=== PATIENT | male | born 1965 | race Caucasian/White ===

== ENCOUNTER 2023-05-26 11:37 | Emergency (ER) | payer OTHER ==
[~2023-05-26] VITALS: Ht 172.7 cm; Wt 102.4 kg
[2023-05-26 11:39] VITALS: TEMP 97.6
[2023-05-26] MEDS ORDERED: NOXI1TAB PO (11:54)
[2023-05-26] MEDS ORDERED: JARD1TAB3 PO (12:00)
[2023-05-26] MEDS ORDERED: OMEP40CA4 PO (12:00)
[2023-05-26] MEDS ORDERED: SERT-141 PO (12:00)
[2023-05-26] MEDS ORDERED: FAMO40TA3 PO (12:00)
[2023-05-26] MEDS ORDERED: NAPR220C23 PO (12:00)
[2023-05-26] MEDS ORDERED: ATOR80TA59 PO (12:00)
[2023-05-26] MEDS ORDERED: LANTINJ4 SC (12:00)
[2023-05-26] MEDS ORDERED: AMLO1TAB25 PO (12:00)
[2023-05-26] MEDS ORDERED: B12-1CHW PO (12:00)
[2023-05-26] MEDS ORDERED: BUPR-70 PO (12:00)
[2023-05-26] MEDS ORDERED: CETI5SOL3 PO (12:00)
[2023-05-26] MEDS ORDERED: LOSA100T46 PO (12:00)
[2023-05-26] MEDS ORDERED: HYDR12.55 PO (12:00)
[2023-05-26] MEDS ORDERED: SPIR-10 PO (12:00)
[2023-05-26] MEDS ORDERED: LIDOCAINE 5% (LIDODERM) PATCH TD ONE (13:20)
[2023-05-26] MEDS ORDERED: KETOROLAC 30 MG/ML 1ML VIAL IM ONE (13:20)
[2023-05-26] MEDS ORDERED: ACETAMINOPHEN TAB 650MG DOSE (2X325MG) PO ONE (13:20)
[2023-05-26 14:22] VITALS: BP 176/90; O2SAT 96
[2023-05-26] MEDS ORDERED: ASPE4PAD TOP (14:28)
[2023-05-26] MEDS ORDERED: METH-1165 PO (14:28)
== END 2023-05-26 14:34 | disposition home or self-care (01) ==
LOC: M ED 11:37
DX: M54.32 Sciatica, left side (principal); R60.9 Edema, unspecified; I10 Essential (primary) hypertension; K21.9 Gastro-esophageal reflux disease without esophagitis; G47.33 Obstructive sleep apnea (adult) (pediatric); F41.9 Anxiety disorder, unspecified; Z88.8 Allergy status to other drugs, medicaments and biological substances; Z79.02 Long term (current) use of antithrombotics/antiplatelets; Z79.811 Long term (current) use of aromatase inhibitors; Z79.83 Long term (current) use of bisphosphonates; Z79.899 Other long term (current) drug therapy
CPT/HCPCS: 93971; 96372; 99283; J1885

== ENCOUNTER 2023-06-04 10:01 | Emergency (ER) | payer OTHER ==
[~2023-06-04] VITALS: Ht 172.7 cm; Wt 100.8 kg
[~2023-06-04 10:01] MED LIST: AMLO1TAB25 PO; ASPE4PAD TOP; ATOR80TA59 PO; B12-1CHW PO; BUPR-70 PO; CETI5SOL3 PO; FAMO40TA3 PO; HYDR12.55 PO; JARD1TAB3 PO; LANTINJ4 SC; LOSA100T46 PO; METH-1165 PO; NAPR220C23 PO; NOXI1TAB PO; OMEP40CA4 PO; SERT-141 PO; SPIR-10 PO
[2023-06-04 10:03] VITALS: TEMP 97.8
[2023-06-04] MEDS ORDERED: NORCO, ANEXSIA 5/325MG TABLET (HYDROcodone/ACETAMINOPHEN) PO ONE (12:15)
[2023-06-04] MEDS ORDERED: HYDR-3713 PO (13:26)
[2023-06-04] MEDS ORDERED: MEDR4PAK PO (13:26)
[2023-06-04 13:34] VITALS: BP 169/90; O2SAT 99
== END 2023-06-04 13:34 | disposition home or self-care (01) ==
LOC: M ED 10:01
DX: M54.32 Sciatica, left side (principal); M48.07 Spinal stenosis, lumbosacral region; M48.061 Spinal stenosis, lumbar region without neurogenic claudication; M43.16 Spondylolisthesis, lumbar region; F41.9 Anxiety disorder, unspecified; I10 Essential (primary) hypertension; Z88.8 Allergy status to other drugs, medicaments and biological substances; Z79.899 Other long term (current) drug therapy; Z79.4 Long term (current) use of insulin; Z79.83 Long term (current) use of bisphosphonates